=== PATIENT | male | born 1955 | race African-American/Black ===

== ENCOUNTER 2020-04-25 06:46 | Inpatient (IN) | payer OTHER ==
[~2020-04-25] VITALS: Ht 172.7 cm; Wt 108.9 kg
[2020-04-25 06:52] VITALS: Ht 172.7 cm; Wt 108.9 kg
[2020-04-25 07:50] LABS: BASOPHIL % 0.6 % (0-2); RED CELL DISTRIBUTION WIDTH 13.3 % (11.5-14.5)
[2020-04-25 08:01] LABS: CALCIUM 9.2 mg/dL (8.5-10.1); CARBON DIOXIDE 33.1 mmol/L (21-32); CHLORIDE SERUM 99 mmol/L (98-107); CREATININE SERUM 1.1 mg/dL (0.7-1.3); GFR1 > 60 mL/min; GLUCOSE SERUM 121 mg/dL (74-106); POTASSIUM SERUM 3.1 mmol/L (3.5-5.1); SODIUM SERUM 138 mmol/L (136-145)
[2020-04-25 08:06] LABS: ALBUMIN 3.9 g/dL (3.4-5.0); ALKALINE PHOSPHATASE 39 U/L (46-116); ALT/SGPT 46 U/L (16-63); AST/SGOT 23 U/L (15-37); BILIRUBIN TOTAL 0.5 mg/dL (0.20-1.00); TOTAL PROTEIN, SERUM 7.9 g/dL (6.4-8.2)
[2020-04-25 08:34] LABS: PLATELET COUNT 138 x10^3mcL (130-400)
[2020-04-25] MEDS ORDERED: FINASTERIDE1 MG PO (10:08)
[2020-04-25] MEDS ORDERED: HORIZANT300 MG PO (10:09)
[2020-04-25] MEDS ORDERED: PEPCID AC10 M2 PO (10:09)
[2020-04-25] MEDS ORDERED: LASIX20 MG PO (10:10)
[2020-04-25] MEDS ORDERED: NORCO 10-325 T1 EACH PO (10:11)
[2020-04-25] MEDS ORDERED: FORTAMET1000 MG PO (10:11)
[2020-04-25] MEDS ORDERED: ZESTRIL40 MG PO (10:12)
[2020-04-25] MEDS ORDERED: GLIPIZIDE XL10 M1 PO (10:13)
[2020-04-25 11:46] LABS: microscopic required? NO
[2020-04-25 12:19] LABS: MAGNESIUM 1.9 mg/dL (1.8-2.4); PHOSPHOROUS 3.8 mg/dL (2.5-4.9)
[2020-04-25 13:18] LABS: UA SPECIFIC GRAVITY 1.015 (1.005-1.035); urine erythrocyte NEGATIVE (NEGATIVE)
[2020-04-25 15:48] VITALS: BP 164/72
[2020-04-25 17:00] VITALS: BP 157/85
[2020-04-25 20:11] VITALS: BP 159/84
[2020-04-26 06:40] VITALS: BP 179/88
[2020-04-26 08:39] LABS: BASOPHIL % 0.3 % (0-2); PLATELET COUNT 147 x10^3mcL (130-400)
[2020-04-26 08:46] LABS: CALCIUM 9.4 mg/dL (8.5-10.1); CARBON DIOXIDE 31.9 mmol/L (21-32); CHLORIDE SERUM 96 mmol/L (98-107); CREATININE SERUM 1.1 mg/dL (0.7-1.3); GFR1 > 60 mL/min; GLUCOSE SERUM 129 mg/dL (74-106); MAGNESIUM 1.8 mg/dL (1.8-2.4); PHOSPHOROUS 2.8 mg/dL (2.5-4.9); POTASSIUM SERUM 3.1 mmol/L (3.5-5.1); SODIUM SERUM 135 mmol/L (136-145)
[2020-04-26 09:14] VITALS: BP 176/95
[2020-04-26 13:45] VITALS: BP 154/80
[2020-04-26 17:50] VITALS: BP 166/74
[2020-04-26 22:19] VITALS: BP 154/78
[2020-04-27 05:53] VITALS: BP 150/83
[2020-04-27 08:55] VITALS: BP 125/83
[2020-04-27 09:11] LABS: CARBON DIOXIDE 29.9 mmol/L (21-32); CHLORIDE SERUM 101 mmol/L (98-107); GFR1 > 60 mL/min; GLUCOSE SERUM 123 mg/dL (74-106); MAGNESIUM 1.9 mg/dL (1.8-2.4); PHOSPHOROUS 3.5 mg/dL (2.5-4.9); POTASSIUM SERUM 3.3 mmol/L (3.5-5.1); SODIUM SERUM 139 mmol/L (136-145)
[2020-04-27 10:48] LABS: BASOPHIL % 0.4 % (0-2); PLATELET COUNT 137 x10^3mcL (130-400); RED CELL DISTRIBUTION WIDTH 14.2 % (11.5-14.5)
[2020-04-27 10:58] VITALS: BP 125/83
[2020-04-27 13:22] VITALS: BP 137/81
== END 2020-04-27 13:40 | disposition home or self-care (01) | DRG 305 ==
LOC: ED 06:46 → DU 10:37 → MU 10:37 → DU 15:07 → MU 04-26 15:39 → DU 04-27 07:02
PROVIDERS: Emergency Medicine; ADMIT Internal Medicine; ATTEND Internal Medicine
DX: I16.0 Hypertensive urgency (principal); I10 Essential (primary) hypertension; E78.00 Pure hypercholesterolemia, unspecified; E11.65 Type 2 diabetes mellitus with hyperglycemia; E87.6 Hypokalemia; E78.5 Hyperlipidemia, unspecified; Z60.2 Problems related to living alone; Z79.84 Long term (current) use of oral hypoglycemic drugs; Z79.899 Other long term (current) drug therapy
CPT/HCPCS: 82962; 83880; G0378; J0360; J7030; Q0092